=== PATIENT | male | born 1945 | race Caucasian/White ===

== ENCOUNTER → 2021-04-29 13:45 | Outpatient (CLI) | payer OTHER, SELFPAY ==
[2021-04-29 14:05] LABS: COVID19 -Nasal RAPID Negative (Negative)
== END ==
PROVIDERS: PCP Family Medicine; Visit Provider Specialist
DX: Z20.822 Contact with and (suspected) exposure to COVID-19 (principal)
CPT/HCPCS: 87635

== ENCOUNTER 2021-05-02 08:14 | Inpatient (IN) | payer OTHER, SELFPAY ==
[2021-04-26 08:28] VITALS: BMI 30.1
[2021-05-02] VITALS (13 sets, daily range): BP systolic 115–154; BP diastolic 42–77; PULSE 60–65; RESP 8–18; TEMP 36.4–37.4; O2SAT 95–98; BMI 30.1
--- NOTE | 2021-05-02 | PATH_ITS ---
[facility] Accession Number: [id number] . 01 Material submitted: . prostate - PROSTATE ADENOMA . 02 Diagnosis: Prostate Adenoma (Weight 52 grams): Benign prostatic tissue with stromal and glandular hyperplasia, and patchy chronic inflammation. No malignancy identified. MRV 05/04/2021 1318 Local . 02 Electronically signed: . Ronda Ahn MD, Pathologist NPI- [id number] . 01 Gross description: . Received in one part. . Received in formalin and labeled with the patient's name and designated prostate adenoma is a 52 gram, 5.5 x 5.0 x 3.0 cm disrupted, focally ragged langston nodular portion of prostate with multiple reapproximating sutures. No seminal vesicles or vas deferens are identified. Orientation cannot be established. The outer surface is inked blue. Sectioning reveals moderate periurethral nodularity, with langston nodules up to 1.5 cm, and moderate focal cystic change with no concretions identified. A discrete mass is not identified. The presumed prostatic urethra is red-langston and focally hemorrhagic. No additional lesions are identified. Manager Sharepoint sections are submitted in A1-A6 (mid prostate in A3-A4). ([id number]) /[facility] 05/03/2021 1559 Local . 02 Pathologist provided ICD-10: N40.1 . 02 CPT . 531259 Specimen Comment: A courtesy copy of this report has been sent to [phone] Performed at: 01 [facility] [address] [place] [address], [place], [place] [id number] MD Timur Mendoza MD Phone: [phone] Performed at: 02 [facility] [place] [address] [facility] [place], [place] [id number] MD Alea Aparicio MD Phone: [phone]
[2021-05-02] MEDS: LACTATED RINGERS 1,000 ML 42 ML IV ×3 (08:58→14:32)
[2021-05-02] MEDS: GABAPENTIN 300 MG CAPSULE PO (08:58)
[2021-05-02] MEDS: ACETAMINOPHEN IV 1,000 MG/100 ML VIAL 400 MG IV (09:06)
--- NOTE | 2021-05-02 11:19 | P.OP.PRE_ITS ---
Pre-operative Note COVID-19 Criteria for continued procedure: Expected advancement of disease process, Possibility delay results in more complex future surgery or treatment, Increased loss of function, Deterioration of the patient's condition or overall health, Delay expected to result in less-positive ultimate med/surg outcome and Non- surgical alternatives not available or appropriate per current SOC Interval Note History & Physical reviewed/Exam performed by Physician: Yes Changes to H&P: No
[2021-05-02] MEDS: CEFAZOLIN 2 GM/20 ML SYRINGE IV (12:25)
--- NOTE | 2021-05-02 12:46 | SUR.OPER ---
Supine on padded OR bed, head on pillow, arms secured on padded arm boards at <90 degrees abduction, legs uncrossed, safety belt at thigh, tape over blanket over lower legs.
[2021-05-02] MEDS: BUPIVACAINE LIPOSOME 266 MG/20 ML VIAL INJ (12:52)
[2021-05-02] MEDS: BUPIVACAINE 0.5% (PF) 30 ML, EPINEPHrine 0.15 MG INJ (12:53)
[2021-05-02] MEDS: HYDROMORPHONE 2 MG INJ 0.5 MG IV (15:26)
--- NOTE | 2021-05-02 15:55 | PM.OP.1 ---
Operative Date/Time/Diagnoses Date of procedure: 05/02/21 Time of procedure: 15:56 Pre-op diagnosis: 1. Urinary retention. 2. Bladder outlet obstruction due to prostate. Post-op diagnosis: same Procedure & Clinicians Procedure: 1. Simple open prostatectomy. Same procedure as scheduled: Yes Indications: 1. Urinary retention. 2. Bladder outlet obstruction due to prostate. Surgeon: Billy Jackson Click Yes if Unassisted: No Anesthesia Type: General, Spinal (Duramorph) and Local (1.33% Exparel. 0.5% Marcaine with epinephrine.) Operative Notes Findings: 1. Normal tissue planes of the anterior abdominal wall. 2. Dense postoperative changes of the posterior bladder neck and anterior midline. Closure Type: primary Specimen(s): other (Prostate adenoma.) Applied: catheter (Twenty-two Moldovan three-way Dick catheter.) and drain(s) (Fifteen Moldovan Hector drain to Mikey-Shin bulb self suction.) Estimated Blood Loss (mL): 200 Blood products transfused: none Procedure in detail: Patient was positioned supine following successful placement Duramorph spinal anesthetic. He was then provided LMA general anesthesia. The lower abdomen, genitalia, and groin were then prepped and draped in sterile fashion. With you a midline infraumbilical incision was then made just above the pubic symphysis. Midline layers of the abdominal wall were then divided with sharp by, blunt, and cautery dissection. The pelvic extraperitoneal space was then entered. The space of Retzius was then explore Emma exposed. A [address] catheter was inserted lower urinary tract balloon inflated with 10 cc. The bladder was then filled with 400 non and 60 cc sterile saline. Now fat and connective tissue of the anterior bladder wall with and carefully mobilized and reflected laterally and superiorly. Of his no quality exclusion of 0.5% Marcaine and epinephrine was then used to infiltrate the midline wall the bladder. A cystotomy was then conducted with electric cautery and LigaSure Impact device. Stay sutures were placed to the anterior aspect of the cystotomy bilaterally. No retractor was placed superiorly and posteriorly. The bladder with neck was then exposed. The bladder neck and interface with prostate were then infiltrated with solution 0.5% Marcaine with epinephrine. A circumferential incision was made at the bladder neck with the handheld cautery pen. Appropriate plane was eventually developed posterior aspect this was carried circumferentially fibromuscular attachments of the capsule from the adenoma. A 0 Vicryl ligature was then used to engage the adenoma both posteriorly and anteriorly performing a [id number]. This was then used as traction through the remainder of the dissection which was accomplished with sharp and blunt technique. Eventually, the adenoma was from the capsule circumferentially. Of note: Attachment at the midline septum were dense and thick, requiring sharp division. The urethra was then transected just distal to the distal portion of the prostate adenoma. The adenoma was then secured with left over Vicryl suture to recapitulate in Situ anatomy. He was handed off the table for routine gross and microscopic examination. Prostate fossa was then packed with appendectomy sponges and pressure was applied downward and posterior for proximally 5 minutes usual fashion. Was then repaired using interrupted [id number] of 2-0 Monocryl from approximately the 4 o'clock position to the 8 o'clock position. Hemostasis then appeared acceptable, though there was small amount of obvious of ooze from deep within the prostatic fossa. A 22 Moldovan, 3 way Dick catheter was then requested. This was advanced into the lower urinary tract over a stylet and digital guidance. A 2 layer closure of anterior cystotomy was then performed with an inner 0 muscular running intermittently locking technique and an outer Lambert technique to reapproximate the seromuscular layer. The balloon was then inflated to 30 cc and was irrigated to light pink. There is no clots. Normal saline continuous bladder irrigation was then set up an inflow was connected to sterile saline inflow and the outflow to gravity drainage. Next, a 15 Moldovan fenestrated Hector drain was positioned in the space of Retzius and brought out through a separate stab incision to the right of the midline incision. This was secured in place with 2-0 silk suture. The midline fascia was reapproximated using a running 0 PDS beginning at this both the superior and inferior apex and then running the closure to approximate midpoint at which each suture was tied to 1 another and buried. Ginger's fascia was reapproximated using a running 3-0 Vicryl. The skin was reapproximated using a running 4-0 Monocryl utilizing subcuticular technique. The skin surface was cleaned and dried. Telfa dressings were tailored appropriately to fit at the drain site and the incision line over this Op site dressing was applied to create a transparent bio occlusive finish. The patient was then awakened, [facility], and transferred recovery in stable condition. Complications: none Post-operative Condition: stable Disposition: PACU Plan for aftercare: Admit to acute care.
--- NOTE | 2021-05-02 16:28 | SUR.PHASEI ---
Belongings - clothing, cell phone, cpap to room 216.
--- NOTE | 2021-05-02 19:02 | PC.NURSE ---
Assess- Patient has a prostectomy, he has a three way gibbons in with continuous irrigation. Urine color is strawberry, he put out 225cc of true urine from 1630 to 1830. 3000ml bags of NS are flushing through patients gibbons. He denies pain and is comfortable. ML incision dressing is cdi s drainage. Patient is comfortable at this time and has LR at 125cc/hr infusing.
[2021-05-02] MEDS: ATORVASTATIN 20 MG TABLET 10 MG PO (20:23)
[2021-05-02] MEDS: LACTATED RINGERS 1,000 ML 125 ML IV (20:23)
[2021-05-02] MEDS: lisinopriL 20 MG TABLET PO (20:24)
[2021-05-02] MEDS: AZELASTINE 1 EACH NASAL (20:24)
[2021-05-02] MEDS: TAMSULOSIN 0.4 MG CAPSULE PO (20:26)
[2021-05-02] MEDS: buPROPion XL 150 MG TAB PO (20:29)
[2021-05-02] MEDS: TRAMADOL 50 MG TABLET PO (21:03)
[2021-05-03 03:00] VITALS: BP 114/46; PULSE 62; RESP 18; TEMP 36.8; O2SAT 95
[2021-05-03] MEDS: LACTATED RINGERS 1,000 ML 125 ML IV ×2 (04:17→11:38)
[2021-05-03] MEDS: TRAMADOL 50 MG TABLET PO ×3 (04:17→16:13)
[2021-05-03] MEDS: ACETAMINOPHEN 325 MG TABLET 650 MG PO ×3 (04:17→16:13)
[2021-05-03] MEDS: PANTOPRAZOLE DR 20 MG TABLET PO (05:21)
[2021-05-03 07:45] VITALS: BP 121/42; PULSE 63; RESP 18; O2SAT 95
[2021-05-03] MEDS: AZELASTINE 1 EACH NASAL ×2 (10:09→20:40)
[2021-05-03] MEDS: buPROPion XL 150 MG TAB PO ×2 (10:10→20:39)
[2021-05-03] MEDS: DUTASTERIDE 0.5 MG CAPSULE PO (10:10)
[2021-05-03] MEDS: lisinopriL 20 MG TABLET PO ×2 (10:11→20:38)
[2021-05-03] MEDS: LORATADINE 10 MG TABLET PO (10:11)
[2021-05-03] MEDS: CHOLECALCIFEROL (VITAMIN D3) 1,000 UNIT TABLET 1000 UNIT PO (10:11)
[2021-05-03 10:33] VITALS: O2SAT 96
[2021-05-03 13:25] VITALS: BP 151/57; PULSE 73; RESP 18; O2SAT 98
--- NOTE | 2021-05-03 13:59 | CM.DANOTE ---
DCP Assessment Patient is 75 y/o male who presents to after Postectomy surgery. Patient has hx of urinary retentions, elevated PSA, incomplete bladder emptying, and Benign Prostatic Hyperplasia with Urinary Obstruction. Patient has [employer] insurance. Patient's PCP is Dr. Rubin Marcial. Patient's surgeon is Dr. Billy Jackson. SPRING SALVAGE WORKER enters room to meet with patient and . Patient is A/Ox4. Patient endorses his independence with ADLs. Patient endorses he resides at home with Snow. Patient endorses that son lives near by. Patient endorses that he knows he will be discharging with a catheter for the next few weeks. Patient acknowledges he will f/u with surgeon later today or tomorrow morning. Patient endorses he is hopeful to d/c tomorrow. Patient declines DCP needs at this time and denies any questions. Plan: Patient to d/c to home with when medically clear, no further DCP needs. RICKEY Terrell Discharge Planning/Care Management Advanced directive, confirm from FAMILY Start: 05/02/21 16:40 Freq: Q24H Status: Active Protocol: Document 05/02/21 17:52 CLL (Rec: 05/02/21 18:04 CLL [id number]) Co-Signed By Kristi Neville RN Advance Directive, confirm on record Time 18:04 Person contacted patient Copy received No CM Discharge Assessment Start: 05/03/21 13:57 Freq: Status: Active Protocol: Document 05/03/21 13:57 LN (Rec: 05/03/21 13:59 LN [id number]) Discharge Planning Assessment Assigned Agricultural Produce Sorter RICKEY Silverio DPOA/Assigned Designee Name Jannette Adamson () Power of Hand Sample Maker Advance Directives? No Advance Directives on File No History Provided By Patient Has Patient been admitted in last 30 No days? Prior Living Arrangements House Household Members spouse Type of transporation used prior to Drives own vehicle admit Independent with ADL's Yes Is patient alert and oriented? Yes Comment Patient to d/c to home with catheter Discharge Plan Home Referrals Initiated None needed Please Provide Date Initial DC 05/03/21 Assessment Was Performed Pre-Anesthesia Assessment Start: 04/26/21 08:28 Freq: Status: Complete Protocol: Document 04/26/21 08:28 [facility] (Rec: 04/26/21 09:36 [facility] [id number]) Pre-Anesthesia Assessment Preferred Name [facility] Patient Information Reviewed Via Phone Assessment Assessment Completed With Patient Comment COVID screen @ 04/29/21 Primary Care Provider Rubin Marcial Seen Specialist in Last 12 Months Yes Specialist Seen Agricultural Education Instructor,Urologist Primary Language Nepali Height 177.8 cm Weight 95.254 kg Body Mass Index (BMI) 30.1 Hearing Ability Hard of Hearing,Use of Hearing Aid Visual Assist Glasses Dentition Type Teeth, Natural Present Barriers to Learning None Other Aids Yes: CPAP Hx Anesthesia Reactions Yes: Heavily sedated after first knee surgery Hx Family Anesthesia Reaction No Hx Malignant Hyperthermia No Hx Blood Transfusions No Anesthesia Review Requested No Breaker Hand No alcohol intake former Smoking Status Former smoker how long ago did patient quit smoking Quit 1967 Substance Use Type does not use Pain Present Pain Reported Comment lower back, neck Musculoskeletal Symptoms Back Pain,Neck Pain History of Falling (Recent or History of No ) Patient is completely paralyzed or No completely immobile Mental Status Oriented to own ability Comment Walks 3-4 miles daily Is patient on oxygen? No Does patient have ESPINOZA/SOB No Hx Sleep Apnea Yes CPAP/BIPAP use prescribed and used routinely Will Bring CPAP/BIPAP DOS Yes Currently Taking a Beta Chidi No Can You Climb a Flight of Stairs Without Yes SOB Hx Chest Pain No Hx SOB No Hx Syncope or Dizziness No Anti-Coagulant Therapy Yes: Eliquis-advised to hold 3 -[address] Ricci Has a Agricultural Education Instructor Yes: Dr. Ricci-last visit 10/08 Hx Pacemaker/ICD Yes: Pacer form scanned and in surgery folder for dos Pacemaker Rep Required? No Cardiac Clearance Received Yes Comment Cardiac records scanned Diet Type At Home Regular dysphagia No Gastrointestinal Symptoms Constipation,Reflux Genitourinary Symptoms Change in Urinary Stream Bladder Pattern Frequency,Nocturia,Retention, Urgency Urinary Catheter Present No Hx Urinary Self Catheterization No Diabetes No Hx Drug Resistant Organism No Presence of External or Internal Medical Yes: Pacemaker, hearing aids, Devices CPAP, cervical hardware, right knee Have you had any close contact with No someone diagnosed with COVID-19? Received a COVID vaccine? Yes Received all doses? Yes Marital Status Lives With spouse Prior Living Arrangements House Number of Floors (Floors) Two Floors Support System Spouse Does the Patient Have Assistance After Yes Surgery Patient Discharge Plan Description Return Home Comment Pt advised 1-2 day length of stay per surgeon Feels Safe in Current Environment Yes Been Physically Hurt or Threatened By a No Person in Current Environment Do you have thoughts of harming yourself None or others? Are you currently considering suicide? No Do you have a plan to hurt yourself or No Plan others? Do You Have Any Spiritual Beliefs That No May Affect Your HC Choices? Do You Have Any Cultural Practices That No May Affect Your HC Choices? Who Can We Speak to About Patient's Care Family, friends Identifying Code for Release of Patient Declines to issue Information Health Care Proxy/Next of Kin Jannette Adamson () Health Care Proxy Emergency Contact Name Jannette Adamson () Emergency Contact Advance Directives? No Advance Directives on File No Requested Patient Bring Advanced Yes Directives DOS Power of Hand Sample Maker Yes Power of Hand Sample Maker Name Jannette Adamson () Power of Hand Sample Maker PAC Instructions Bring CPAP/BIPAP,Medications to take/avoid,Nasal antibiotic ,No ETOH/petroleum product on skin DOS,NPO,Post-op transportation,Sensory aids, Sturdy shoes/comfortable clothes,Do not bring valuables and remove jewelry
[2021-05-03] MEDS: TRANEXAMIC ACID 500 MG IRR (14:14)
[2021-05-03] MEDS: SODIUM CHLORIDE IRR (14:14)
[2021-05-03] MEDS: TRANEXAMIC ACID 500 MG in SODIUM CHLORIDE 0.9% 100 ML 200 ML IV (14:14)
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
[2021-05-03] MEDS: OXYCODONE IR 5 MG TABLET PO ×2 (17:30→23:46)
[2021-05-03 20:24] VITALS: PULSE 76; RESP 16; O2SAT 93
[2021-05-03] MEDS: TAMSULOSIN 0.4 MG CAPSULE PO (20:38)
[2021-05-03] MEDS: HYDROMORPHONE 0.5 MG INJ IV (20:38)
[2021-05-03] MEDS: SODIUM CHLORIDE 0.9% FLUSH 10 ML IV (20:39)
[2021-05-03] MEDS: ATORVASTATIN 20 MG TABLET 10 MG PO (20:40)
[2021-05-03 21:00] VITALS: BP 156/67; PULSE 75; RESP 17; TEMP 37; O2SAT 95
[2021-05-04] VITALS (11 sets, daily range): BP systolic 125–161; BP diastolic 52–70; PULSE 67–76; RESP 17–19; TEMP 36.4–37.2; O2SAT 93–97
[2021-05-04] MEDS: LIDOCAINE 2% (GLYDO) 6 ML GEL TOP ×2 (00:49→04:30)
[2021-05-04] MEDS: OXYCODONE IR 5 MG TABLET PO ×2 (03:59→17:01)
[2021-05-04] MEDS: LACTATED RINGERS 1,000 ML 125 ML IV ×3 (03:59→20:55)
[2021-05-04] MEDS: BELLADONNA/OPIUM SUPPOSITORIES 1 EACH PR ×4 (04:00→20:48)
[2021-05-04] MEDS: PANTOPRAZOLE DR 20 MG TABLET PO (06:58)
--- NOTE | 2021-05-04 07:59 | PC.NURSE ---
Admit Note- Patient arrived to room via stretcher from ER. Admit questions done, medications reviewed, physical assessment done, and skin check completed. patient oriented to bed and bed controls, room, lights, phone, bathroom, and call ceja/tv remote. [id number] agreed to call for assistance. Call ceja and phone within reach. will continue to monitor.
[2021-05-04] MEDS: LORATADINE 10 MG TABLET PO (09:04)
[2021-05-04] MEDS: buPROPion XL 150 MG TAB PO ×2 (09:04→20:41)
[2021-05-04] MEDS: CHOLECALCIFEROL (VITAMIN D3) 1,000 UNIT TABLET 1000 UNIT PO (09:04)
[2021-05-04] MEDS: DOCUSATE 100 MG CAPSULE PO (09:04)
[2021-05-04] MEDS: AZELASTINE 1 EACH NASAL ×2 (09:04→20:41)
[2021-05-04] MEDS: lisinopriL 20 MG TABLET PO ×2 (09:04→20:41)
[2021-05-04] MEDS: ACETAMINOPHEN 325 MG TABLET 650 MG PO (17:00)
[2021-05-04] MEDS: ATORVASTATIN 20 MG TABLET 10 MG PO (20:41)
[2021-05-04] MEDS: TAMSULOSIN 0.4 MG CAPSULE PO (20:41)
[2021-05-05] VITALS (8 sets, daily range): BP systolic 131–177; BP diastolic 54–76; PULSE 63–79; RESP 14–18; TEMP 36.4–37.2; O2SAT 94–99
[2021-05-05] MEDS: BELLADONNA/OPIUM SUPPOSITORIES 1 EACH PR ×2 (01:04→08:15)
[2021-05-05] MEDS: LACTATED RINGERS 1,000 ML 125 ML IV (04:54)
[2021-05-05] MEDS: PANTOPRAZOLE DR 20 MG TABLET PO (06:42)
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
[2021-05-05] MEDS: BISACODYL 10 MG SUPP PR (08:14)
[2021-05-05] MEDS: CHOLECALCIFEROL (VITAMIN D3) 1,000 UNIT TABLET 1000 UNIT PO (08:15)
[2021-05-05] MEDS: buPROPion XL 150 MG TAB PO ×2 (08:15→20:14)
[2021-05-05] MEDS: DUTASTERIDE 0.5 MG CAPSULE PO (08:16)
[2021-05-05] MEDS: DOCUSATE 100 MG CAPSULE PO (08:16)
[2021-05-05] MEDS: lisinopriL 20 MG TABLET PO ×2 (08:17→20:14)
[2021-05-05] MEDS: LORATADINE 10 MG TABLET PO (08:18)
[2021-05-05] MEDS: OXYBUTYNIN 5 MG ER TAB 10 MG PO (08:18)
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
[2021-05-05] MEDS: OXYCODONE IR 5 MG TABLET PO (11:40)
--- NOTE | 2021-05-05 13:40 | PT.IPTN ---
Current Diagnoses Benign prostatic hyperplasia with lower urinary tract symptoms (05/02/21) Surgery Performed Operation Date: 05/02/21 10:15 Actual Procedures p Simple Open Prostatectomy - Billy Jackson MD Physical Therapy Treatment Note M2 PT-IP Current Condition Start: 05/05/21 12:45 Freq: NEEDED Status: Active Protocol: Document 05/05/21 09:55 AB (Rec: 05/05/21 12:59 AB [email or web address]) Physical Therapy Current Condition Current Condition Evaluation Date 05/05/21 Treatment Diagnosis s/p open prostatectomy; difficulty in walking Onset Date 05/02/21 M3 PT-IP Subjective Start: 05/05/21 12:45 Freq: NEEDED Status: Active Protocol: Document 05/05/21 13:40 AB (Rec: 05/05/21 16:15 AB [email or web address]) Subjective Physical Therapy Visit Type Type Treatment Note Visit Start Time 13:40 Visit Stop Time 14:30 Total Visit Minutes 40 Number of SERVICE STATION HELPER Visits 0 Physical Therapy Visit Comments Patient Comments agreeable to do PT Therapy Pain Assessment Pain When Pain Assessed At Rest Pain Present Pain Present Pain Reported Location ABDOMEN Scale Used pain scale not stated Pain Management Techniques Distraction,Modification of Treatment,Re-positioning, Timing of Activity with Medications M4 PT-IP Mobility and Gait Start: 05/05/21 12:45 Freq: NEEDED Status: Active Protocol: Document 05/05/21 13:40 AB (Rec: 05/05/21 16:15 AB [email or web address]) PT-Transfer Assessment Sit to and From Stand Sit to and from Stand Moderate Assistance,Maximum Assistance,1 Person Assistance ,Use of Upper Extremities Equipment Transfer Assistive Device Gait Belt,Front Wheeled Walker Orthotic/Prosthetic Devices or Brace: No Transfers Transfer Destination Chair Transfer Technique ambulated Transfer Ability Level of Assist Moderate Assistance,1 Person Assistance,Use of Upper Extremities Comments Mobility Comments spouse in room for caregiver training. educated spouse regarding pt's abdominal precautions and log roll bed mobility. educated on how to use safety belt and how to assist pt. spouse was able to scar safety belt on pt. pt completed sit to stand mod to max A and max cues with PT needing to assist pt for stability and safety. instructed pt to sit back down . educated on sit to stand techniques. pt attempted again with spouse assisting mod A. Pt needing to cue pt. pt ambulated ~ 50 ft using FWW mod A with spouse assiting . unsteady ataxic gait. pt sat on w/c. educated pt and spouse regarding stair climbing technique. pt stated that he will use R rail to ascending. pt attempted up stairs holding on to R rail with B hands max A and max cues with L knee buckling. instructed pt to step down. pt stated that he wants to try the L rail. completed holding L rail with B hands max A and max cues. max A using FWW to go back to w/c. pt with increase knee flexion and overall slouching forward. pt c/o spasm and fatigue and requiring increase assistance due to increase unsteadiness. pt unable to do further activity and for safety, no further caregiver training conducted. assisted pt back to his room. completed ambulation from w/c to chair using FWW mod to max A and max cues. positioned pt on chair . call light and table placed within reach. informed pt that he is not ready to go home today and pt understood. set up further caregiver training tomorrow at 10 am. informed nurse regarding pt's mobility. Gait Assessment Gait Gait Assistance Required: Minimum Assistance,Moderate Assistance,1 Person Assist Distance (Feet) 50 Assistive Devices Assistive Device Gait Belt,Front Wheeled Walker Orthotic/Prosthetic Devices or Brace: No Gait Deviations General Gait Pattern Decreased Stride Length, Decreased Feet Clearance,Wide Based Gait Factors Limiting Gait Function Factors Limiting Gait Function Decreased Activity Tolerance, Decreased Strength,Limited Range of Motion,Pain,Poor Balance,Poor Safety Awareness Stair Climbing Assessment Evaluation Level of Assist On Stairs Maximal Assistance,1 Person Assistance Devices Stair Climbing Assistive Devices Left Railing,Right Railing Technique/Endurance Stair Climbing Direction Ascend and Descend Stair Climbing Technique Step to Step Number of Steps Climbed 3 Comments Stair Climbing Comments pls refer to mobility section for details M5 PT-IP Objective Assessments Start: 05/05/21 12:45 Freq: NEEDED Status: Active Protocol: Document 05/05/21 09:55 AB (Rec: 05/05/21 12:59 AB [email or web address]) Orientation Orientation/Cognition Level of Alertness Alert Orientation Name,Place,Situation Language Function Ability No Deficits Noted Safety Awareness Decreased Safety Awareness Memory Description No Deficits Noted Gross Range of Motion Lower Extremity ROM Assessment Within Functional Limits Strength Lower Extremity Strength Assessment Within Functional Limits Coordination Assessment Gross Coordination Gross Coordination WNL Sensation Assessment Sensation Gross Sensation Right LE Impaired,Left LE Impaired Sensation Description Numbness,Tingling Comments Sensation Comments pt has chronic BLE neuropathy Muscle Tone Muscle Tone WNL Yes M6 PT-IP Treatment Start: 05/05/21 12:45 Freq: NEEDED Status: Active Protocol: Document 05/05/21 13:40 AB (Rec: 05/05/21 16:15 AB [email or web address]) Physical Therapy Treatment Education Education Provided Safety M7 PT-IP Assessment and Plan Start: 05/05/21 12:45 Freq: NEEDED Status: Active Protocol: Document 05/05/21 13:40 AB (Rec: 05/05/21 16:15 AB [email or web address]) PT Summary Assessment and Plan Potential Rehabilitation Potential Fair Summary Impairments Pain,ROM,Strength,Balance, Coordination,Sensation,Tone, Cognition,Bed Mobility, Transfers,Gait,Activity Tolerance Progress Towards Goals Slow Progress due to Pain,Slow Progress due to Activity Tolerance Assessment Summary caregiver training intiated but further training is required. pt has decrease activity tolerance requiring increase asssitance with mobility and unable to participate farther with activities. pt with instance of L knee buckling during stairclimbing requiring max A for stability. Spouse unable to assist pt with stair climbing and no other assistance will be availble at home. Set up caregiver training again tomorrow. pt at this time may require SNF rehab but will continue to assess progress for safe d/c plan. If pt goes home, pt will need homehealth services. Goals Bed Mobility Goal Independent Transfer Goal Independent,Front Wheeled Walker Gait Goal Independent,Front Wheel Walker Gait Distance 250 Other Goals up/down 5 stpes one rail SBA Days to Meet Goals 10 Frequency of Treatment Frequency Of Treatment Twice a Day Treatment Plan Physical Therapy Treatment Plan Bed Mobility Training,Transfer Training,Gait Training, Therapeutic Exercise,Balance Retraining,Post Op Education, Discharge Planning,Hot or Cold Pack,Neuromuscular Re-ed, Coordination Retraining,Manual Therapy Other Recommendations and Next Treatment caregiver trainin/24 @10am Focus Precautions Abdominal Surgery Precautions Log Roll,Lifting Restrictions, Gait Belt above Incisional Area Recommendations To Nursing Amount of Assist Needed 1 Person Assist Discharge Recommendations PT Discharge Recommendations Home with Assistance,Home Health Transportation Needs at Discharge Private Vehicle
--- NOTE | 2021-05-05 16:44 | PC.NURSE ---
Assumed care of pt at 0700. Pt resting in bed during hand-off. CBI with pink drainage in gibbons bag. in at 1230. Order to stop CBI and d/c to home. CBI stopped. Spouse arrived at 1330 for caregiver training by P.T., Per P.T. pt is unsteady, unable to get into his home with only his 's assistance. See P.T. documentation for details. Pt also requests to stay another night r/t bladder spasms and pain, his stated she does not feel she can manage his current condition. Phone message left for Dr. Jackson to discuss cancel of d/c, awaiting return call.
[2021-05-05] MEDS: TRAMADOL 50 MG TABLET PO (17:14)
[2021-05-05] MEDS: ACETAMINOPHEN 325 MG TABLET 650 MG PO (17:14)
--- NOTE | 2021-05-05 19:54 | PC.NURSE ---
Report received from day shift about ambiguous discharge situation. Confirmed patient's concerns about discharging home at this time including poor physical therapy results from earlier, lack of caregiver training to his , and 's general lack of mobility. Day shift nurse stated they were unable to contact provider, message left, and switchboard operator receptionist at outside clinic contacted. Will continue to await provider call back and will continue caring for patient per current orders.
[2021-05-05] MEDS: ATORVASTATIN 20 MG TABLET 10 MG PO (20:14)
[2021-05-05] MEDS: TAMSULOSIN 0.4 MG CAPSULE PO (20:14)
[2021-05-05] MEDS: SODIUM CHLORIDE 0.9% FLUSH 10 ML IV (20:15)
[2021-05-06 05:00] VITALS: BP 152/63; PULSE 73; RESP 14; TEMP 37.3; O2SAT 95
[2021-05-06] MEDS: PANTOPRAZOLE DR 20 MG TABLET PO (06:46)
[2021-05-06 08:00] VITALS: BP 128/54; PULSE 69; RESP 16; TEMP 37.1; O2SAT 96
[2021-05-06 09:46] VITALS: BP 128/54; PULSE 69
[2021-05-06] MEDS: lisinopriL 20 MG TABLET PO (09:46)
[2021-05-06] MEDS: LORATADINE 10 MG TABLET PO (09:47)
[2021-05-06] MEDS: CHOLECALCIFEROL (VITAMIN D3) 1,000 UNIT TABLET 1000 UNIT PO (09:47)
[2021-05-06] MEDS: buPROPion XL 150 MG TAB PO (09:47)
[2021-05-06] MEDS: SODIUM CHLORIDE 0.9% FLUSH 10 ML IV (09:49)
[2021-05-06] MEDS: OXYBUTYNIN 5 MG ER TAB 10 MG PO (09:53)
--- NOTE | 2021-05-06 10:05 | PT.IPTN ---
Current Diagnoses Benign prostatic hyperplasia with lower urinary tract symptoms (05/02/21) Surgery Performed Operation Date: 05/02/21 10:15 Actual Procedures p Simple Open Prostatectomy - Billy Jackson MD Physical Therapy Treatment Note M2 PT-IP Current Condition Start: 05/05/21 12:45 Freq: NEEDED Status: Active Protocol: Document 05/05/21 09:55 AB (Rec: 05/05/21 12:59 AB [id number]) Physical Therapy Current Condition Current Condition Evaluation Date 05/05/21 Treatment Diagnosis s/p open prostatectomy; difficulty in walking Onset Date 05/02/21 M3 PT-IP Subjective Start: 05/05/21 12:45 Freq: NEEDED Status: Active Protocol: Document 05/06/21 10:05 AB (Rec: 05/06/21 12:38 AB [email or web address]) Subjective Physical Therapy Visit Type Type Treatment Note Visit Start Time 10:05 Visit Stop Time 10:38 Total Visit Minutes 33 Number of PNEUMATIC TOOL OPERATOR Visits 0 Physical Therapy Visit Comments Patient Comments agreeable to do PT; spouse in room for training Therapy Pain Assessment Pain When Pain Assessed At Rest Pain Present Pain Present Pain Reported Location ABDOMEN Scale Used pain scale not stated M4 PT-IP Mobility and Gait Start: 05/05/21 12:45 Freq: NEEDED Status: Active Protocol: Document 05/06/21 10:05 AB (Rec: 05/06/21 12:38 AB [email or web address]) PT-Bed Mobility Assessment Rolling Type of Rolling Log Rolling Level of Assist Standby Assistance Supine to Sit Supine to Sit Standby Assistance Sit to Supine Sit to Supine Standby Assistance PT-Transfer Assessment Sit to and From Stand Sit to and from Stand Minimal Assistance,1 Person Assistance,Use of Upper Extremities Equipment Transfer Assistive Device Gait Belt,Front Wheeled Walker Orthotic/Prosthetic Devices or Brace: No Transfers Transfer Destination Bed,Chair Transfer Technique ambulated Transfer Ability Level of Assist Minimal Assistance,1 Person Assistance,Use of Upper Extremities Comments Mobility Comments caregiver training conducted. caregiver training was intiated yesterday but due to pt's decrease activity tolerance was not able to safely complete activities. spouse initially having difficulty putting safety belt on pt. educated spouse on how to put safety belt on again and spouse completed. spouse assisted pt with sit to stand and pt ambulated ~ 75 ft using FWW CGA to min A with spouse assisting. pt completed up/down stairs holding on to L rail with B hands and spouse assisting min to mod. pt ambulated using FWW ~ 50 ft CGA to min A and assisted back to the room rest of the way. assisted pt back to his room. ambulated from w/c to EOB . completed log roll bed mobility sit<>supine SBA. completed sit to stand and transfer using fWW to chair CGA to min A. positioned pt on chair. call light and table placed within reach. Gait Assessment Gait Gait Assistance Required: Contact Guard Assist,Minimum Assistance,1 Person Assist Distance (Feet) 75 Able to Maintain Weight Bearing Status Yes During Gait Assistive Devices Assistive Device Gait Belt,Front Wheeled Walker Orthotic/Prosthetic Devices or Brace: No Gait Deviations General Gait Pattern Ataxic,Decreased Stride Length ,Decreased Feet Clearance Factors Limiting Gait Function Factors Limiting Gait Function Decreased Activity Tolerance, Decreased Strength,Limited Range of Motion,Pain,Poor Balance,Poor Safety Awareness Stair Climbing Assessment Evaluation Level of Assist On Stairs Minimal Assistance,Moderate Assistance,1 Person Assistance Devices Stair Climbing Assistive Devices Left Railing Technique/Endurance Stair Climbing Direction Ascend and Descend Stair Climbing Technique Step to Step Number of Steps Climbed 3 Stair Climbing Set # Repetitions (reps) 1 M5 PT-IP Objective Assessments Start: 05/05/21 12:45 Freq: NEEDED Status: Active Protocol: Document 05/05/21 09:55 AB (Rec: 05/05/21 12:59 AB [id number]) Orientation Orientation/Cognition Level of Alertness Alert Orientation Name,Place,Situation Language Function Ability No Deficits Noted Safety Awareness Decreased Safety Awareness Memory Description No Deficits Noted Gross Range of Motion Lower Extremity ROM Assessment Within Functional Limits Strength Lower Extremity Strength Assessment Within Functional Limits Coordination Assessment Gross Coordination Gross Coordination WNL Sensation Assessment Sensation Gross Sensation Right LE Impaired,Left LE Impaired Sensation Description Numbness,Tingling Comments Sensation Comments pt has chronic BLE neuropathy Muscle Tone Muscle Tone WNL Yes M6 PT-IP Treatment Start: 05/05/21 12:45 Freq: NEEDED Status: Active Protocol: Document 05/06/21 10:05 AB (Rec: 05/06/21 12:38 AB [email or web address]) Physical Therapy Treatment Education Education Provided Precautions,Safety M7 PT-IP Assessment and Plan Start: 05/05/21 12:45 Freq: NEEDED Status: Active Protocol: Document 05/06/21 10:05 AB (Rec: 05/06/21 12:38 [email or web address]) PT Summary Assessment and Plan Potential Rehabilitation Potential Fair Summary Impairments Pain,ROM,Strength,Balance, Coordination,Sensation,Bed Mobility,Transfers,Gait, Activity Tolerance Progress Towards Goals Slow Progress due to Pain,Slow Progress due to Activity Tolerance Assessment Summary caregiver training conducted and spouse was able to assist pt. pt will need home health services upon d/c. Goals Bed Mobility Goal Independent Transfer Goal Independent,Front Wheeled Walker Gait Goal Independent,Front Wheel Walker Gait Distance 250 Other Goals up/down 5 stpes one rail SBA Days to Meet Goals 10 Frequency of Treatment Frequency Of Treatment Twice a Day Treatment Plan Physical Therapy Treatment Plan Bed Mobility Training,Transfer Training,Gait Training, Therapeutic Exercise,Balance Retraining,Post Op Education, Discharge Planning,Hot or Cold Pack,Neuromuscular Re-ed, Coordination Retraining,Manual Therapy Precautions Abdominal Surgery Precautions Log Roll,Lifting Restrictions, Gait Belt above Incisional Area Recommendations To Nursing Amount of Assist Needed 1 Person Assist Discharge Recommendations PT Discharge Recommendations Home with Assistance,Home Health Transportation Needs at Discharge Private Vehicle
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
--- NOTE | 2021-05-06 14:43 | PC.NURSE ---
Pt A&Ox3, VSS, afebrile on RA. He is able to walk with slightly unsteady gait. He denies pain other than occasional bladder spasms to lower abdomen. He is cleared by PT this a.m. to go home with . MD Jackson at bedside clearing patient to dishcarge home after teaching self administration of lovenox, and transitioning from a night bag to a leg bag. Patient and verbalize understanding of activity, transitioning of bag, s/sx of infection and worsening of symptoms, medications. and follow up care. He is escorted via discharge to private vehicle with his for discharge home this afternoon.
== END 2021-05-06 13:30 | disposition home or self-care (01) | DRG 707 ==
PROVIDERS: Admitting Provider Specialist; PCP Family Medicine; Referring Provider Specialist; Visit Provider Specialist
PROC: 0VT00ZZ Resection of Prostate, Open Approach (ICD-10-PCS; principal; 2021-05-02 10:15)
DX: N40.1 Benign prostatic hyperplasia with lower urinary tract symptoms (principal); N13.8 Other obstructive and reflux uropathy; R33.8 Other retention of urine; I48.91 Unspecified atrial fibrillation; I49.5 Sick sinus syndrome; R97.20 Elevated prostate specific antigen [PSA]; G47.33 Obstructive sleep apnea (adult) (pediatric); N32.89 Other specified disorders of bladder; G62.9 Polyneuropathy, unspecified; I10 Essential (primary) hypertension; K21.9 Gastro-esophageal reflux disease without esophagitis; E78.00 Pure hypercholesterolemia, unspecified; Z87.891 Personal history of nicotine dependence; Z95.0 Presence of cardiac pacemaker; Z20.822 Contact with and (suspected) exposure to COVID-19
CPT/HCPCS: 55831; 87086; 87635; 94762; 97162; 97530; C9803; C9290; J0131; J0171; J0690; J1100; J1170; J2250; J2274; J2405; J2704; J3010

== ENCOUNTER → 2021-05-17 11:14 | Outpatient (CLI) | payer OTHER, SELFPAY ==
[2021-05-16 11:26] VITALS: BMI 30.1
[2021-05-17 11:44] LABS: Appearance Urine UA CLOUDY; Bilirubin Urine UA NEGATIVE (NEGATIVE); Color Urine UA YELLOW; Glucose Urine UA NEGATIVE (Negative); Ketones Urine UA NEGATIVE (NEGATIVE); Leukocyte Esterase Urine UA 2+ (NEGATIVE); Nitrite Urine UA NEGATIVE (Negative); Occult Blood Urine UA 3+ (Negative); Protein Urine UA 2+ (Negative); Urobilinogen Urine UA 0.2 E.U./dL (0.2)
[2021-05-17 12:01] LABS: Bacteria Urine None Seen; Culture Indicated Urine Specimen Cultured; RBC Urine 30-100/HPF (0-5/HPF); Squamous Epithelial Cell Urine 1-5 /HPF (0-5/HPF); WBC Urine 30-100/HPF (0-5/HPF)
== END ==
PROVIDERS: PCP Family Medicine; Visit Provider Specialist
DX: R30.0 Dysuria (principal); R33.9 Retention of urine, unspecified
CPT/HCPCS: 51798; 81001; 87086

== ENCOUNTER → 2021-06-16 11:08 | Outpatient (CLI) | payer OTHER, SELFPAY ==
[2021-05-16 11:26] VITALS: BMI 30.1
== END ==
PROVIDERS: PCP Family Medicine; Visit Provider Specialist
DX: Z09 Encounter for follow-up examination after completed treatment for conditions other than malignant neoplasm (principal); R30.0 Dysuria; R39.15 Urgency of urination; R35.0 Frequency of micturition
CPT/HCPCS: 51798; 81002; 87086